=== PATIENT | female | born 1960 | race American Indian/Alaskan Native ===

== ENCOUNTER 2020-04-01 11:20 | Emergency (ER) | payer BC, OTHER ==
[2020-04-01] MEDS ORDERED: IBUPROFEN 600 MG TAB PO ONE (11:33)
--- NOTE | 2020-04-01 12:37 | XRay Report ---
HISTORY:trauma, pain COMPARISON: None. TECHNIQUE: AP lateral and obliques views were obtained FINDINGS: Bones: No fracture or dislocation. Joint spaces: Maintained. Soft tissues: No significant abnormality. Additional findings: Small flecks of calcium superior to the patella etiology unclear IMPRESSION: 1. No significant abnormality. Please see comments Signer Name: Nhan Casarez MD Signed: 04/01/2020 12:32 PM Workstation Name: [id number]
[2020-04-01] MEDS ORDERED: oxyCODONE /ACETAMINOPHEN 5-325MG TAB PO ONE (13:12)
--- NOTE | 2020-04-01 13:16 | Emergency Department Report ---
ED General Adult HPI - General Chief complaint: Extremity Injury, Lower Stated complaint: KEFT KNEE PAIN Time Seen by Provider: 04/01/20 12:51 Source: patient Mode of arrival: Wheelchair Limitations: No Limitations - History of Present Illness Initial comments: 59-year-old -[place] female patient presents with complaints of left knee injury x this morning. Patient states she tripped on the stairs and fell onto her knee. She also complains of left thigh pain. Patient rates her current pain as 8/10 in severity and states it did not improve with ibuprofen given here in ED. She denies any numbness tingling/weakness in her limb, however she does state she has difficulty bending her knee. She also denies any head trauma or loss of consciousness, chest pain, or abdominal pain Severity scale (0 -10): 10 - Related Data Previous Rx's Medication Instructions Recorded Last Taken Type Acetaminophen/Codeine [Tylenol 1 tab PO Q8H PRN #4 tab 04/01/20 Unknown Rx /Codeine # 3 tab] Diclofenac Sodium 75 mg PO BID PRN #14 tablet. 04/01/20 Unknown Rx Allergies Allergy/AdvReac Type Severity Reaction Status Date / Time No Known Allergies Allergy Unverified 04/01/20 11:29 ED Review of Systems ROS: Stated complaint: KEFT KNEE PAIN Other details as noted in HPI Constitutional: denies: chills, fever, malaise Respiratory: denies: shortness of breath Cardiovascular: denies: chest pain Gastrointestinal: denies: abdominal pain Musculoskeletal: arthralgia. denies: back pain Skin: denies: change in color Neurological: denies: headache ED Past Medical Hx - Past Medical History Previous Medical History?: No - Surgical History Past Surgical History?: No - Medications Home Medications: Home Medications Medication Instructions Recorded Confirmed Last Taken Type Acetaminophen/Codeine [Tylenol 1 tab PO Q8H PRN #4 tab 04/01/20 Unknown Rx /Codeine # 3 tab] Diclofenac Sodium 75 mg PO BID PRN #14 tablet. 04/01/20 Unknown Rx ED Physical Exam - General Limitations: No Limitations General appearance: alert, in no apparent distress, obese - Head Head exam: Present: atraumatic, normocephalic - Eye Eye exam: Present: normal appearance. Absent: scleral icterus - ENT ENT exam: Present: mucous membranes moist - Neck Neck exam: Present: normal inspection - Respiratory Respiratory exam: Absent: respiratory distress - Cardiovascular Cardiovascular Exam: Present: regular rate - Expanded Lower Extremity Exam Left Upper Leg exam: Present: tenderness. Absent: swelling, laceration, ecchymosis, deformity Knee exam: Present: tenderness. Absent: full ROM (Secondary to pain), swelling, abrasion, laceration, ecchymosis, deformity, erythema, effusion Neuro vascular tendon exam: Present: no vascular compromise. Absent: pulse deficit, sensory deficit - Neurological Exam Neurological exam: Present: alert, oriented X3 - Psychiatric Psychiatric exam: Present: normal affect, normal mood - Skin Skin exam: Present: warm, dry, intact, normal color. Absent: rash, cyanosis, diaphoretic, erythema, ecchymosis ED Course Vital Signs 04/01/20 11:32 Temperature 98.2 F Pulse Rate 83 Respiratory 20 Rate Blood Pressure 143/90 O2 Sat by Pulse 98 Oximetry ED Medical Decision Making - Radiology Data Radiology results: report reviewed XRay Report Signed Patient: GIO ALCALA MR#: [id number] 91 : 1960 Acct:[id number] Age/Sex: 59 / F ADM Date: 04/01/20 Loc: ED Attending Dr: Ordering Physician: ED MD RUSSELL Date of Service: 04/01/20 Procedure(s): XR knee 3V LT Accession Number(s): [id number] cc: ED DOCMD Fluoro Time In Minutes: HISTORY:trauma, pain COMPARISON: None. TECHNIQUE: AP lateral and obliques views were obtained FINDINGS: Bones: No fracture or dislocation. Joint spaces: Maintained. Soft tissues: No significant abnormality. Additional findings: Small flecks of calcium superior to the patella etiology unclear IMPRESSION: 1. No significant abnormality. Please see comments LEFT FEMUR 4 VIEWS INDICATION / CLINICAL INFORMATION: pain after fall. COMPARISON: None available. FINDINGS: No significant skeletal abnormality - Medical Decision Making 59-year-old -[place] female patient presents with complaints of left knee injury x this morning. Patient states she tripped on the stairs and fell onto her knee. She also complains of left thigh pain. Patient rates her current pain as 8/10 in severity and states it did not improve with ibuprofen given here in ED. She denies any numbness tingling/weakness in her limb, however she does state she has difficulty bending her knee. Patellar tenderness to palpation noted on exam-sunrise view of knee x-ray added; x-rays are negative for any acute bony abnormalities. Patient placed in Asad wrap and provided with crutches. Recommend follow-up with orthopedics as needed. Her vitals are normal, she is well-appearing, she is stable for discharge home. Strict return precautions were discussed in detail with patient who verbalizes understanding. Critical care attestation.: If time is entered above; I have spent that time in minutes in the direct care of this critically ill patient, excluding procedure time. ED Disposition Clinical Impression: Acute pain of left knee Disposition: DC- TO HOME OR SELFCARE Is pt being admited?: No Condition: Stable Instructions: Knee Sprain (ED) Prescriptions: Diclofenac Sodium 75 mg PO BID PRN #14 tablet.dr CRAVEN Reason: pain Acetaminophen/Codeine [Tylenol /Codeine # 3 tab] 1 tab PO Q8H PRN #4 tab PRN Reason: Pain , Severe (7-10) Referrals: [facility] [Provider Group] - 3-5 Days
--- NOTE | 2020-04-01 13:54 | XRay Report ---
LEFT FEMUR 4 VIEWS INDICATION / CLINICAL INFORMATION: pain after fall. COMPARISON: None available. FINDINGS: No significant skeletal abnormality Signer Name: Jose Davalos MD FACR Signed: 04/01/2020 1:50 PM Workstation Name: [id number]
--- NOTE | 2020-04-01 15:56 | XRay Report ---
LEFT KNEE 3 VIEWS INDICATION / CLINICAL INFORMATION: sunrise view, patella tenderness. COMPARISON: None available. FINDINGS: Moderate degenerative changes seen in the patellofemoral joint. Calcification above the knee joint an teriorly may be in the quadriceps tendon Signer Name: Jose OLIVEIRA Signed: 04/01/2020 3:52 PM Workstation Name: [id number]
[2020-04-01 16:50] VITALS: BP 157/107
== END 2020-04-01 14:48 | disposition home or self-care (01) ==
LOC: ED 11:20
DX: M25.562 Pain in left knee (principal); M79.652 Pain in left thigh; Z79.899 Other long term (current) drug therapy; W10.9XXA Fall (on) (from) unspecified stairs and steps, initial encounter; Y93.89 Activity, other specified; Y92.89 Other specified places as the place of occurrence of the external cause; Y99.8 Other external cause status